=== PATIENT | male | born 1950 | race Caucasian/White ===

== ENCOUNTER → 2018-04-02 | Outpatient (CLI) | payer OTHER ==
--- NOTE | 2018-04-02 15:16 | DIREP ---
PROCEDURE:MRI BRAIN W&W/O COMPARISON:None. INDICATIONS:OPTIC DISC EDEMA TECHNIQUE:A variety of imaging planes and parameters were utilized for visualization of suspected pathology. Images were performed without and with gadolinium contrast. FINDINGS: VENTRICLES:Mild ventriculomegaly with mild atrophy. No evidence for demyelinating disorder is seen. No lacunar infarcts are seen in the basal ganglia or in the thalamus. Pineal gland core Meckel's cave and cavernous sinuses are unremarkable. CEREBRUM:Diffusion-weighted images are satisfactory. No evidence of restricted diffusion is seen to suggest an acute or hyperacute infarct. The arteries are patent at the level of [place]. On this MRI image, no aneurysm is seen in the region of [place]. No vessel occlusion is identified. No acute infarct, bleed or mass lesion is seen. No acute or chronic epidural, subdural or subarachnoid hemorrhage is seen. No edema, midline shift or increased intracranial pressure is seen. Mild atrophy of corpus callosum. No sellar mass lesions are seen. No chiasmatic or hypothalamic compressions are seen. Sella, chiasm, cervicomedullary craniovertebral junctions are normal. No tonsillar ectopia is seen. Clivus and the odontoid are satisfactory. CEREBELLUM:On the transaxial images the lower half of the cerebellum is not included along with noninclusion of the medulla. As visualized, no posterior fossa infarcts or mass lesions are seen. BRAINSTEM:The medulla is not completely included on the transaxial views. No focal white matter change is seen in the peduncle spur. Minimal white-matter change identified in the yaneli and in the midbrain. BASAL CISTERNS:Normal. HEMORRHAGE:No MASS LESION:No ACUTE INFARCT:No SKULL:Review of the orbits show satisfactory appearance of the orbital globes. No abnormal enhancement is seen in the sclera. The optic nerve show no enlargement. No compression of the optic nerve is seen in the intraconal or the intra canal a colour compartment. On the sagittal images, no chiasmatic compression is seen. No air-fluid levels are seen in the maxillary or the sphenoid sinuses. Minimal fluid in the mastoids. Calvarium is unremarkable. OTHER:Upon contrast administration, there is no abnormal enhancement in the vessels, dura, leptomeninges, brain parenchyma or in the subependymal region. CONCLUSION: Mild atrophy. No evidence for demyelinating disorder is seen. Patent intracranial vessels, no acute infarct, bleed or mass lesion is seen. No scleral enhancement or enlargement of the optic nerves is seen. No chiasmatic compression is identified. No aneurysm seen on this MRI image in the [place]. Dictated by: Glynn Merino MD on 04/02/2018 at 03:10 PM
--- NOTE | 2018-04-02 15:52 | DIREP ---
PROCEDURE:MRI ORBIT FACE & NECK W&W/O COMPARISON:None. INDICATIONS:OPTIC DISC EDEMA TECHNIQUE:A variety of imaging planes and parameters were utilized for visualization of the orbits. Images were performed without and with intravenous gadolinium contrast. FINDINGS: GLOBES:No scleral thickening or scleral enhancement is seen. No abnormal signal is identified within the anterior the posterior vitreous. Pre and postseptal compartments are satisfactory. EXTRAOCULAR MUSCLES:No enlargement or abnormal enhancement seen in the extraocular muscles. OPTIC NERVES:No enlargement of the optic nerves is seen. No abnormal enhancement is identified. No optic nerve glioma or a meningioma is seen. No compression of the optic nose within the intraconal or the intra canal a colour compartment is seen. No infiltration of the intraconal fat is identified. LACRIMAL GLANDS:Normal. CONCLUSION:Negative MRI of the orbits with and without contrast. Dictated by: Glynn Merino MD on 04/02/2018 at 03:48 PM
== END | disposition home or self-care (01) ==
LOC: MRI 12:29
PROVIDERS: ATTEND Ophthalmology
DX: H47.10 Unspecified papilledema (principal); G31.9 Degenerative disease of nervous system, unspecified
CPT/HCPCS: 70543; 70553; A9579